=== PATIENT | female | born 1955 | race Caucasian/White ===

== ENCOUNTER 2017-03-17 04:59 | Inpatient (IN) | payer MEDICARE, OTHER ==
[~2017-03-17] VITALS: Ht 161.3 cm; Wt 57.8 kg
[~2017-03-17 04:59] MED LIST: ACET-2154 PO; CARV6.25 PO; Hydrocodone Bit/Acetaminophen PO; LEVO25TA49 PO; MAG30ORA PO; OLAN5TAB3 PO; PANT40TA2 PO; SOLI5TAB2 PO; VALP250C PO
--- NOTE | 2017-03-17 05:10 | NUR ---
Patient medically cleared per ERMD. Call placed to GPS for room assignment, unable to receive at this time. Marking Room Supervisor notified, instructed to call after AM shift change.
[2017-03-17] MEDS ORDERED: IMIP25TA6 PO (05:38)
[2017-03-17] MEDS ORDERED: OLAN7.5T3 PO (05:38)
[2017-03-17] MEDS ORDERED: LORA-258 PO (05:38)
[2017-03-17] MEDS ORDERED: MAGN296S PO (05:38)
[2017-03-17] MEDS ORDERED: LEVO25TA2 PO (05:38)
[2017-03-17] MEDS ORDERED: ASPI-605 PO (05:38)
[2017-03-17] MEDS ORDERED: BENZ0.5T3 PO (05:38)
[2017-03-17] MEDS ORDERED: PANT40TA4 PO (05:38)
[2017-03-17] MEDS ORDERED: NITR100C6 PO (05:38)
[2017-03-17] MEDS ORDERED: DIVA250T4 PO (05:38)
[2017-03-17] MEDS ORDERED: ARIP10TA17 PO (05:56)
--- NOTE | 2017-03-17 07:05 | NUR ---
Report received from night auditor, pt resting in gurney and watching tv with NAD. Pend trans to MHU post change of shift.
--- NOTE | 2017-03-17 07:40 | NUR ---
Attempted to give report to MHU, per Milvia they can not accept the pt because the pt is on dialysis. Spoke with Gauri (nursing fertilizer processing supervisor ) who stated she will make accommodations for the pt and call back with further information.
--- NOTE | 2017-03-17 11:00 | NUR ---
Patient transferred to 2nd floor. No acute distress noted.
[2017-03-17] MEDS ORDERED: ACETAMINOPHEN 325 MG TABLET PO PRN (11:30)
[2017-03-17] MEDS ORDERED: MAG HYDROX/AL HYDROX/SIMETH 30 ML LIQUID UDC PO PRN (11:30)
[2017-03-17] MEDS ORDERED: MAGNESIUM HYDROXIDE 30 ML LIQUID UDC PO PRN (11:30)
[2017-03-17 20:00] VITALS: BP 127/64
--- NOTE | 2017-03-18 07:03 | NUR ---
PATIENT CONTINUES ON 5150 HOLD AND HAS 1:1 SITTER AT BEDSIDE AT ALL TIMES. NO VERBALIZATION OF WANTING TO HARM SELF OR OTHERS LAST NIGHT. PATIENT WAS RESTLESS THE BEGINNING OF THE NIGHT BUT SLEPT 7 HOURS. ASSISTED TO BATHROOM NEEDED. SAFETY MEASURES IMPLEMENTED.
[2017-03-18 08:30] VITALS: BP 126/75
--- NOTE | 2017-03-18 08:35 | NUR ---
RECEIVED PATIENT UP AND AMBULATORY ALERT AND AWARE DENIES DISCOMFORTS NO AGGRESSIVE BEHAVIOR AT THIS TIME REMAIN ON ONE ON ONE SITTER FOR OBSERVATION WILL CONTINUE TO PROVIDE SAFE AND THERAPEUTIC ENVIRONMENT AT ALL TIMES AND WILL CONTINUE TO OBSERVE
[2017-03-18] MEDS: NICOTINE 14 MG/24HR PATCH TD SCH ×2 (09:00→09:11)
[2017-03-18] MEDS: LORAZEPAM 0.5 MG TABLET PO PRN (09:18)
[2017-03-18] MEDS ORDERED: ARIPIPRAZOLE 2 MG TABLET PO SCH (10:30)
--- NOTE | 2017-03-18 10:39 | NUR ---
PATIENT SEEN AND EXAMINED BY DR BANDA WITH NEW ORDERS PATIENT SIGNED CONSCENT AND FAXED TO THE PHARMACY.
[2017-03-18] MEDS: DIVALPROEX 250 MG TABLET.DR PO SCH ×3 (11:11→17:06)
[2017-03-18] MEDS: BENZTROPINE MESYLATE 0.5 MG TABLET PO SCH ×2 (11:12→17:06)
[2017-03-18] MEDS: OLANZAPINE 5 MG TABLET PO SCH ×2 (11:12→17:06)
[2017-03-18 12:40] VITALS: BP 123/75
--- NOTE | 2017-03-18 15:37 | NUR ---
RESTING COOPERATIVE AND COMPLIANT WITH MEDICATIONS AND CARE WILL CONTINUE TO PROVIDE SAFE AND THERAPEUTIC ENVIRONMENT AT ALL TOMES.
[2017-03-18 16:00] VITALS: BP 127/74
--- NOTE | 2017-03-18 18:00 | NUR ---
SITTING ON THE CHAIR IN HER ROOM DENIES DISCOMFORT ALL DUE MEDICATIONS GIVEN AND TOLERATED WELL WILL CONTINUE TO PROVIDE SAFE AND THERAPEUTIC ENVIRONMENT AT ALL TIMES.
[2017-03-18 20:35] VITALS: BP 110/67
--- NOTE | 2017-03-18 22:00 | NUR ---
A/O x4 on 5249 for HI and G.D. medication compliant. Encourage to verbalize feelings. ON 02-26 for 5249 Q 15 min checks for safety. Gait is stable. Denies of any distress. Side rails up. Call Light within reach. bed in lowest position.
[2017-03-19 04:55] VITALS: BP 127/69
--- NOTE | 2017-03-19 06:31 | NUR ---
Awake A/O denies of any distress ambulating in H/w Emanuel cath to Right C/W intact.
--- NOTE | 2017-03-19 07:56 | NUR ---
AWAKE ALERT BUT FORGETFUL DENIES PAIN OR DISCOMFORTS AT THIS TIME.ADEOLA CATH REMAINS INTACT WITH NO BLEEDING AMBULATORY IN ROOM COMPLIANT WITH CARE AT THIS TIME.
[2017-03-19] MEDS: DIVALPROEX 250 MG TABLET.DR PO SCH ×3 (08:48→16:39)
[2017-03-19] MEDS: ARIPIPRAZOLE 10 MG TABLET PO SCH (08:48)
[2017-03-19] MEDS: BENZTROPINE MESYLATE 0.5 MG TABLET PO SCH ×2 (08:48→16:39)
[2017-03-19] MEDS: OLANZAPINE 5 MG TABLET PO SCH ×2 (08:48→16:39)
[2017-03-19] MEDS: NICOTINE 14 MG/24HR PATCH TD SCH (08:49)
[2017-03-19 10:51] VITALS: BP 118/69
[2017-03-19 15:07] VITALS: BP 122/87
--- NOTE | 2017-03-19 15:50 | NUR ---
DR IZQUIERDO HERE TO SEE PATIENT WITH NO NEW ORDERS AT THIS TIME WILL CONTINUE TO OBSERVE AND PROVIDE SAFE AND THERAPEUTIC ENVIRONMENT AT ALL TIMES.
--- NOTE | 2017-03-19 16:08 | NUR ---
Firearms Report: Operating Room Technologist completed and submitted [employer] Firearms Report on 03/19/17.
--- NOTE | 2017-03-19 18:00 | NUR ---
AMBULATING WELL COMPLIANT WITH MEDICATIONS AND CARE DENIES INTENT TO HURT ANYONE WILL CONTINUE TO OBSERVE.
--- NOTE | 2017-03-19 20:46 | NUR ---
A/o Denies HI/SI/A/H or V/H compliant with meds. Remains on 5250 for HI and G.D. 1-1 At bed side Q 15 min checks for safety. Emanuel Cath to right Upper C/w intact. Cooperative with staff.
[2017-03-19] MEDS: TEMAZEPAM 7.5 MG CAPSULE PO PRN ×3 (22:02→23:40)
--- NOTE | 2017-03-20 | NUR ---
RECEIVED REPORT FROM BENCH PRESS OPERATOR. PATIENT IS SLEEPING AT THIS TIME, WITH 1:1 SITTER AT BEDSIDE. NO RESP. DISTRESS NOTED. BED ALARM ON. CALL LIGHT IN REACH. ALL NEEDS ATTENDED. WILL CONTINUE TO MONITOR AND ASSESS .
--- NOTE | 2017-03-20 00:06 | NUR ---
restoril 7.5 mg effective.
--- NOTE | 2017-03-20 00:15 | NUR ---
Given report to Shayla Ko.
--- NOTE | 2017-03-20 03:30 | NUR ---
PATIENT ASLEEP IN BED. SITTER AT BEDSIDE FOR SAFETY. ALL NEEDS ATTENDED.
[2017-03-20 04:00] VITALS: BP 125/68
--- NOTE | 2017-03-20 06:01 | NUR ---
PATIENT ASLEEP IN BED. EASILY AROUSABLE. SLEPT A TOTAL OF 5 HOURS AND 45 MINUTES. SITTER AT BEDSIDE FOR SAFETY. CALL LIGHT IN REACH. ALL NEEDS ATTENDED. WILL CONTINUE TO MONITOR AND ASSESS.
--- NOTE | 2017-03-20 07:30 | NUR ---
ALERT AND ORIENTED SOMEWHAT FORGETFUL AMBULATORY TO DESIRED DESTINATION DENIES DISCOMFORTS DENIES INTENT TO HURT SEF OR ANYONE HAS A SITTER AT HER BEDSIDE TO ENSURE SAFETY WILL CONTINU TO PROVIDE SAFE AND THERAPEUTIC ENVIRONMENT AT ALL TIMES.
[2017-03-20] MEDS: ARIPIPRAZOLE 10 MG TABLET PO SCH (08:36)
[2017-03-20] MEDS: OLANZAPINE 5 MG TABLET PO SCH ×2 (08:36→16:34)
[2017-03-20] MEDS: BENZTROPINE MESYLATE 0.5 MG TABLET PO SCH ×2 (08:36→16:34)
[2017-03-20] MEDS: DIVALPROEX 250 MG TABLET.DR PO SCH ×3 (08:36→16:34)
[2017-03-20] MEDS: NICOTINE 14 MG/24HR PATCH TD SCH (08:37)
--- NOTE | 2017-03-20 10:00 | NUR ---
SENT THE PATIENT DOWN TO THE MENTAL HEALTH UNIT WITH HER SITTER TO PARTICIPATE IN ACTIVITIES AT THIS TIME.
--- NOTE | 2017-03-20 11:30 | NUR ---
PATIENT RETURNED FROM THE ACTIVITIES FIRST FLOOR MENTAL HEALTH UNIT WITH HER SITTER WITH NO C/O AT THIS TIME.
[2017-03-20 14:17] VITALS: BP 137/80
--- NOTE | 2017-03-20 14:51 | NUR ---
DR HDEZ HERE TO SEE PATIENT WITH NEW ORDERS AND NOTED .AWARE THAT PATIENT HAD DIALYSIS SINCE THE WITH ORDER TO CHECK LABS IN AM AND NOTED.
--- NOTE | 2017-03-20 14:53 | NUR ---
Initial Discharge Instructions: Pt resides at home alone [[address] [place] [address];[phone]]. Per pt, she would like to return home upon discharge. Pt provided consent to contact her [facility] worker, Rachel ([phone]) to involve with discharge planning. SW called and left message for Rachel. Pt did not give consent to contact her father, Dany Pizarro ([phone]). SW will speak with pt, [facility] worker, and MD regarding appropriate discharge plans. SW will form a safe and proper discharge for this patient.
--- NOTE | 2017-03-20 17:30 | NUR ---
DUE MEDICATIONS GIVEN SHE IS COMPLIANT WITH ALL OF HER MEDICATIONS BUT EAGER TO SEE HER DOCTOR TO DISCUSS THE NEXT PLAN OF CARE.
[2017-03-20 20:26] VITALS: BP 125/69
--- NOTE | 2017-03-21 06:00 | NUR ---
END OF SHIFT SUMMERY: Pt is calm throughout the night. no episodes of agitation or distress noted. slept about 8 hours. will endorse patient and POC to the next nurse to cont the care.
[2017-03-21 06:35] LABS: BASOPHILS # (AUTO) 0.1 K/uL (0.0-8.0); BASOPHILS % (AUTO) 0.7 % (0.0-2.0); EOSINOPHILS # (AUTO) 0.4 K/uL (0.0-0.7); EOSINOPHILS % (AUTO) 4.4 % (0.0-7.0); HEMATOCRIT 36.2 % (31.2-41.9); HEMOGLOBIN 12.1 g/dL (10.9-14.3); LYMPHOCYTES # (AUTO) 2.5 K/uL (20.0-40.0); LYMPHOCYTES % (AUTO) 29.5 % (20.5-51.5); MEAN CORPUSCULAR HEMOGLOBIN 33.1 uug (24.7-32.8); MEAN CORPUSCULAR HGB CONC 34 g/dL (32.3-35.6); MEAN CORPUSCULAR VOLUME 98.8 fL (75.5-95.3); MONOCYTES # (AUTO) 0.6 K/uL (2.0-10.0); MONOCYTES % (AUTO) 7.6 % (0.0-11.0); NEUTROPHILS # (AUTO) 4.8 K/uL (1.8-8.9); NEUTROPHILS % (AUTO) 57.8 % (38.5-71.5); PLATELET COUNT (AUTO) 173 K/uL (179-408); RED BLOOD CELL COUNT(AUTO) 3.67 MIL/uL (3.63-4.92); WHITE BLOOD COUNT (AUTO) 8.4 K/uL (3.8-11.8)
[2017-03-21 06:57] LABS: THYROID STIMULATING HORMONE 2.535 mIU/mL (0.358-3.740)
[2017-03-21 07:09] LABS: BILIRUBIN,TOTAL 0.2 mg/dL (0.2-1.0); CREATININE 2.8 mg/dL (0.6-1.3); MAGNESIUM 2.3 mg/dL (1.8-2.4); PHOSPHOROUS 3.3 mg/dL (2.5-4.9); POTASSIUM 4.6 mmol/L (3.5-5.1); TOTAL PROTEIN, SERUM 7.4 g/dL (6.4-8.2)
--- NOTE | 2017-03-21 07:30 | NUR ---
PATIENT IS RESTING STATED SLEPT OKAY DENIES FEELING ANXIOUS COMPIANT WITH CARE AT THIS TIME AND WILL CONTINUE TO OBSERVE.
[2017-03-21] MEDS: BENZTROPINE MESYLATE 0.5 MG TABLET PO SCH ×2 (08:42→16:22)
[2017-03-21] MEDS: DIVALPROEX 250 MG TABLET.DR PO SCH ×3 (08:42→16:22)
[2017-03-21] MEDS: ARIPIPRAZOLE 10 MG TABLET PO SCH (08:42)
[2017-03-21] MEDS: OLANZAPINE 5 MG TABLET PO SCH ×2 (08:42→16:22)
[2017-03-21] MEDS: NICOTINE 14 MG/24HR PATCH TD SCH (09:00)
--- NOTE | 2017-03-21 10:15 | NUR ---
Parts Technician: On 03/20 at 1520, this advertising writer attempted to contact patient's , Morales Soriano ([phone]) to discuss DC planning and collect collateral information. Left voicemail, and awaiting return call. MD and Team made aware. SW will continue to follow-up.
--- NOTE | 2017-03-21 11:13 | NUR ---
PATIENT SEEN AND EXAMINED BY BRIJESH AUTOMATIC TOE LASTER WITH NEW ORDERS AND NOTED.
[2017-03-21 12:00] VITALS: BP 131/82
[2017-03-21 14:24] LABS: *BILIRUBIN,URIN NEGATIVE (NEGATIVE); *BLOOD, URINE NEGATIVE (NEGATIVE); *CLARITY,URINE CLEAR (CLEAR); *COLOR,URINE LIGHT YELLOW (YELLOW); *KETONES,URINE NEGATIVE (NEGATIVE); *PROTEIN,URINE 1+ (NEGATIVE); *UROBILINOGEN,URINE 0.2 E.U./dl (NORMAL); LEUKOCYTE ESTERASE ,URINE NEGATIVE (NEGATIVE); NITRITE, URINE NEGATIVE (NEGATIVE); UGLUCOSE NEGATIVE (NEGATIVE)
[2017-03-21 15:20] VITALS: BP 128/81
--- NOTE | 2017-03-21 15:24 | NUR ---
URINE SPECIMEN OBTAINED AND SENT TO THE LAB ORDERED.
[2017-03-21 15:30] LABS: SQUAMOUS EPITHELIAL CELL,UR MODERATE /HPF (NONE SEEN); WBC,URINE 0-3 /HPF (0-3)
--- NOTE | 2017-03-21 16:45 | NUR ---
PER THE CORPORATE DEVELOPMENT ANALYST PATIENT WILL BE DISCHARGED TOMORROW WILL BE PICKED UP ABOUT 184 BY HER CORPORATE DEVELOPMENT ANALYST CEDRICK WHITEHEAD.
--- NOTE | 2017-03-21 17:55 | NUR ---
RESTING DENIES DISCOMFORTS EAGER TO GO HOME.INFORMED HER THAT SHE WILL BE PICKED UP TOMORROW AT 1845
[2017-03-21] MEDS: LORAZEPAM 0.5 MG TABLET PO PRN (20:30)
--- NOTE | 2017-03-21 20:31 | NUR ---
Patient awake standing in her room fixing her bed. No SOB denies chest pain. Requesting her Ativan pill. Cooperative w/ care & treatment. Routine night meds given, Ativan 0.5mg po adm. No further complaints, Vital signs are WNL.
[2017-03-21] MEDS ORDERED: ATORVASTATIN 20 MG TABLET PO SCH (21:00)
--- NOTE | 2017-03-22 01:42 | NUR ---
Resting comfortably. Assisted to the bathroom PRN
[2017-03-22 04:00] VITALS: BP 117/79
[2017-03-22] MEDS ORDERED: PANTOPRAZOLE SODIUM 40 MG TABLET.DR PO SCH ×2 (07:00→09:00)
[2017-03-22] MEDS ORDERED: LEVOTHYROXINE SODIUM 25 MCG TABLET PO SCH ×2 (07:00→09:00)
[2017-03-22] MEDS: DIVALPROEX 250 MG TABLET.DR PO SCH ×3 (08:04→17:15)
[2017-03-22] MEDS: ARIPIPRAZOLE 10 MG TABLET PO SCH (08:04)
[2017-03-22] MEDS: BENZTROPINE MESYLATE 0.5 MG TABLET PO SCH ×2 (08:04→17:15)
[2017-03-22] MEDS: OLANZAPINE 5 MG TABLET PO SCH ×2 (08:04→17:15)
[2017-03-22] MEDS: NICOTINE 14 MG/24HR PATCH TD SCH (08:05)
[2017-03-22] MEDS ORDERED: ASPIRIN EC 81 MG TABLET.DR PO SCH (09:00)
--- NOTE | 2017-03-22 13:10 | NUR ---
DC Note: Patient will be discharged home with her [facility] caregiver [[address] [place] [address]; [phone]] via private transportation at 1845. Spoke with pt's [facility] caregiver, Bhavana ([phone]) who is willing to provide transportation and is agreeable with discharge plans. Spoke with pt's , Morales ([phone]) who is aware and agreeable with discharge plans. Patient is aware and agreeable with discharge plans. Patient will follow-up with her Primary Care Physician Dr. West [[facility] [address] [place] [address]; [phone]] and her Psychiatrist Dr. Hilario [[facility] [address], [place] [address]; [phone]]. For smoking cessation, patient was referred to [employer] ([id number]-LUNGUSA) and [employer] ([phone]). Pt was also encouraged to participate in a Nicotine Anonymous telephone meeting at 6:15pm PST Sunday-Sunday ([phone]; PIN [phone]). Faxed Home Health Order to [facility] ([phone]). Spoke with Destinee at [facility] ([phone]) who stated they will provide home health for medication management starting 03/23/17.
--- NOTE | 2017-03-22 19:20 | NUR ---
PT D/C WITH CAREGIVER CEDRICK. PT IS CALM, COOPERATIVE D/C WITH ALL BELONGINGS, VALUABLES, PRESCRIPTIONS,HOME MEDS, EXITCARE PACKET, AND PT SIGNED FIREARMS DOCUMENT. PT HOLD DISCONTINUED AT DISCHARGE. PT CONTRACTS FOR SAFETY OF SELF AND OTHERS INSIDE AND OUTSIDE OF THE HOSPITAL.
== END 2017-03-22 19:53 | disposition home health service (06) | DRG 885 ==
LOC: ER 05:05 → GPSOV 10:42
PROVIDERS: ADMIT Psychiatry & Neurology Psychiatry; ATTEND Internal Medicine
PROC: 5A1D70Z Performance of Urinary Filtration, Intermittent, Less than 6 Hours Per Day (ICD-10-PCS; principal; 2017-03-17)
DX: F31.64 Bipolar disorder, current episode mixed, severe, with psychotic features (principal); N18.6 End stage renal disease; M32.9 Systemic lupus erythematosus, unspecified; I12.0 Hypertensive chronic kidney disease with stage 5 chronic kidney disease or end stage renal disease; E88.09 Other disorders of plasma-protein metabolism, not elsewhere classified; E03.9 Hypothyroidism, unspecified; M19.90 Unspecified osteoarthritis, unspecified site; T43.595S Adverse effect of other antipsychotics and neuroleptics, sequela; Z99.2 Dependence on renal dialysis; K21.9 Gastro-esophageal reflux disease without esophagitis; E78.5 Hyperlipidemia, unspecified; Z85.828 Personal history of other malignant neoplasm of skin; Z87.440 Personal history of urinary (tract) infections; Z79.899 Other long term (current) drug therapy; R35.0 Frequency of micturition; I10 Essential (primary) hypertension
CPT/HCPCS: 36415; 80164; 83735; 84100; 84443; 85025; 87086; 90937; A4663; J3490